=== PATIENT | male | born 1960 | race Caucasian/White ===

== ENCOUNTER 2018-10-08 11:38 | Emergency (ER) | payer OTHER ==
--- NOTE | 2018-10-08 12:34 | XRAY Report ---
Reason: chest pain Procedure Date: 10/08/2018 Accession Number: [id number] / [id number] Procedure: XR - Chest 2 View X-Ray CPT Code: 26493 FULL RESULT: EXAM: CHEST RADIOGRAPHY EXAM DATE: 10/08/2018 12:02 PM. CLINICAL HISTORY: Chest pain. COMPARISON: None. TECHNIQUE: 2 views. FINDINGS: Lungs/Pleura: No focal opacities evident. No pleural effusion. No pneumothorax. Normal volumes. Mediastinum: Heart and mediastinal contours are unremarkable. Other: Metallic BB projecting over the left mid chest. IMPRESSION: No radiographic evidence of acute cardiopulmonary disease. RADIA
[2018-10-08 12:48] LABS: BASOPHILS % (AUTO) 0.7 %; EOSINOPHILS # (AUTO) 0.2 10^3/uL (0.0-0.7); HGB - HEMOGLOBIN 15.8 g/dL (14.0-18.0); LYMPHOCYTES # (AUTO) 2.2 10^3/uL (1.5-3.5); LYMPHOCYTES % (AUTO) 39.6 %; MEAN CORPUSCULAR HGB CONC 35.2 g/dL (32.0-36.0); MEAN CORPUSCULAR VOLUME 88.2 fL (80.0-94.0); MEAN PLATELET VOLUME 8.2 fL (7.4-11.4); MONOCYTES # (AUTO) 0.5 10^3/uL (0.0-1.0); MONOCYTES % (AUTO) 9.6 %; NEUTROPHILS # (AUTO) 2.5 10^3/uL (1.5-6.6); NEUTROPHILS % (AUTO) 46.1 %; PLT - PLATELET COUNT 242 10^3/uL (130-450); RED BLOOD COUNT 5.09 10^6/uL (4.70-6.10); RED CELL DISTRIBUTION WIDTH 12.7 % (12.0-15.0); WHITE BLOOD COUNT 5.5 x10^3/uL (4.8-10.8)
[2018-10-08 12:59] LABS: ALBUMIN 4.7 g/dL (3.2-5.5); ALBUMIN/GLOBULIN RATIO 1.5 (1.0-2.2); CALCIUM 9.5 mg/dL (8.5-10.3); CREATININE 0.8 mg/dL (0.6-1.2); TOTAL PROTEIN 7.8 g/dL (6.7-8.2)
--- NOTE | 2018-10-08 13:00 | ED Physician Documentation ---
History of Present Illness - Stated complaint Stated Complaint: DIZZY/LIGHTHEADED - Chief complaint Chief Complaint: Cardiac - Additonal information Additional information: hx from pt 58 male hx CAD s/p stents at [facility] a few monthgs ago to ED today with int chest pain soa and vertigo occuring with exertion resolving with rest lasting about 10 min at a time over the last few days also l shoulder pain but that is lonmg standing - existed prior to his stents - does not seem to be related to his heart sx no fever cough no leg swelling he is on asa brilinta statin and BB Review of Systems Constitutional: denies: Fever, Chills Cardiac: reports: Chest pain / pressure Respiratory: reports: Dyspnea GI: denies: Abdominal Pain Musculoskeletal: denies: Extremity swelling Neurologic: reports: Other (dizzy). denies: Generalized weakness Endocrine: denies: Easy bruising / bleeding Immunocompromised: denies: Immunocompromised PD PAST MEDICAL HISTORY - Past Medical History Past Medical History: Yes Cardiovascular: Hypertension, High cholesterol, Coronary artery disease GI: GERD, Hepatitis, Diverticulitis Musculoskeletal: Gout Other Past Medical History: AA - Past Surgical History General: Hiatal hernia repair, Colonoscopy, EGD Ortho: Other Cardiovascular: Coronary stent, Cardiac catheterization - Present Medications Home Medications: Ambulatory Orders Medication Instructions Recorded Confirmed Aspirin 81 mg PO DAILY PM 10/08/18 10/08/18 Atorvastatin [Lipitor] 40 mg PO DAILY 10/08/18 10/08/18 Baclofen 10 mg PO DAILY 10/08/18 10/08/18 Metoprolol Succinate/Hctz 12.5 mg PO DAILY 10/08/18 10/08/18 [Metoprolol ER-Hctz 25-12.5 mg] Ticagrelor [Brilinta] 90 mg PO DAILY 10/08/18 10/08/18 - Allergies Allergies/Adverse Reactions: Allergies Allergy/AdvReac Type Severity Reaction Status Date / Time No Known Drug Allergies Allergy Verified 10/08/18 11:46 - Social History Does the pt smoke?: Yes Smoking Status: Current every day smoker Does the pt drink ETOH?: Yes Substance Use and Type: Marijuana Results - Vitals Vitals: Vital Signs - 24 hr 10/08/18 10/08/18 11:43 13:38 Temperature 36 C L Heart Rate 72 74 Respiratory 16 19 Rate Blood Pressure 161/109 H 139/102 H O2 Saturation 98 93 Oxygen O2 Source Room air - EKG (time done) 1147 Rhythm: NSR [place]: Normal Intervals: Normal AR QRS: Normal Ischemia: Non specific changes (flat T waves inferior) Other comments: Other comments (artifact V2) - Labs Labs: Laboratory Tests 10/08/18 10/08/18 10/08/18 12:36 12:36 12:36 WBC 5.5 RBC 5.09 Hgb 15.8 Hct 44.9 MCV 88.2 MCH 31.0 MCHC 35.2 RDW 12.7 Plt Count 242 MPV 8.2 Neut # (Auto) 2.5 Lymph # (Auto) 2.2 [place] # (Auto) 0.5 Eos # (Auto) 0.2 Baso # (Auto) 0.0 Absolute Nucleated RBC 0.00 Nucleated RBC % 0.1 Sodium 137 Potassium 4.2 Chloride 104 Carbon Dioxide 25 Anion Gap 8.0 BUN 20 Creatinine 0.8 Estimated GFR (MDRD) 100 Glucose 122 H Calcium 9.5 Total Bilirubin 1.0 AST 25 ALT 27 Alkaline Phosphatase 77 Troponin I < 0.04 Total Protein 7.8 Albumin 4.7 Globulin 3.1 Albumin/Globulin Ratio 1.5 Lipase 31 - Rads (name of study) CXR Radiology: See rad report (no acute process, mattalic BBprojected over L chest) PD MEDICAL DECISION MAKING - ED course ED course: sounds like unstablke angina in a 58 male with recent stents presently sx free already too his asa BB statin and brilinta today/last 24 hr will call [facility] to transfer spoke to Dr Wayne cardio and he agrees pt would benefit from transfer and cath - he advises no need for heparin if pt remains sx free Dr Serra hospitalist will be receiving / accepting doc pt wanted to go POV but I explained that I did not think that was safe if he was having heart problems and also it is hospital policy that patients be transferred by ambulance to be COBRA compliant Departure - Departure Disposition: 02 Transfer Acute Care Hosp Clinical Impression: Unstable angina Discharge Date/Time: 10/08/18 15:10
[2018-10-08 13:41] VITALS: BP 139/102
== END 2018-10-08 15:10 | disposition short-term general hospital (02) ==
LOC: ED 11:38
DX: I25.110 Atherosclerotic heart disease of native coronary artery with unstable angina pectoris (principal); I10 Essential (primary) hypertension; E78.00 Pure hypercholesterolemia, unspecified; Z95.5 Presence of coronary angioplasty implant and graft; Z79.82 Long term (current) use of aspirin; F17.200 Nicotine dependence, unspecified, uncomplicated
CPT/HCPCS: 36415; 71046; 80053; 83690; 84484; 85025; 93005; 99284

== ENCOUNTER 2018-10-08 15:12 | Outpatient (CLI) | payer OTHER | END 2018-10-08 15:13 | disposition short-term general hospital (02) | LOC: EMS 15:12 | PROVIDERS: ATTEND Surgery | DX: I20.0 Unstable angina (principal) | CPT/HCPCS: A0170; A0425; A0427 ==